=== PATIENT | female | born 1950 | race Caucasian/White ===

== ENCOUNTER 2018-11-23 08:28 | Inpatient (IN) | payer OTHER ==
[2018-11-23] VITALS (69 sets, daily range): BP systolic 43–177; BP diastolic 17–148
[~2018-11-23] VITALS: Ht 167.6 cm; Wt 192.2 kg
[~2018-11-23 08:28] MED LIST: AMOXICILLIN 50500 M1 PO; DOXYCYCLINE 10100 MG PO; FLUOXETINE HCL40 MG PO; KLOR-CON 1010 MEQ PO; LASIX 20 MG TAB20 MG PO; LASIX 40 MG TAB40 M1 PO; NORCO 10-325 T1 EACH PO; SILVADENE20 GM TP
[2018-11-23 08:59] LABS: HEMATOCRIT 46.8 % (37.0-47.0); HEMOGLOBIN 15.8 gm/dL (12.0-15.0); MCH 30.9 pg (26.0-34.0); MCHC 33.8 g/dL (28.0-37.0); MCV 91.5 fL (80.0-100.0); PLATELET COUNT 290 thou/uL (150-400); RBC 5.12 mil/uL (4.20-5.00); RDW 15.4 % (10.5-14.5); WBC 27.8 thou/uL (4.0-11.0)
[2018-11-23] MEDS ORDERED: SYNTHROID100 MC1 PO (09:09)
[2018-11-23] MEDS ORDERED: ULTRAM 50MG TAB50 MG PO (09:10)
[2018-11-23] MEDS ORDERED: CLEOCIN HCL150 MG PO (09:10)
[2018-11-23 09:15] LABS: APTT 32.6 Seconds (24.5-32.8); INR 1.5; PROTIME 15.9 Seconds (9.3-11.4)
[2018-11-23 09:19] LABS: ALBUMIN 2.1 g/dL (3.4-5.0); CREATININE 3.6 mg/dL (0.6-1.0); MAGNESIUM 2.9 mg/dL (1.8-2.4); TOTAL BILIRUBIN 1.3 mg/dL (<0.1-1.0); TOTAL PROTEIN 7.3 g/dL (6.4-8.2); TROPONIN-I 0.26 ng/mL (<0.06)
[2018-11-23 09:31] LABS: ABSOLUTE NEUTROPHILS 24.7 thou/uL (1.4-8.2)
[2018-11-23 09:32] LABS: ANISOCYTOSIS 1+
[2018-11-23 09:51] LABS: BE(vivo) -17.6 mmol/L (-2 to +3); HCO3 10.1 mmol/L (22.0-26.0); PCO2 30.1 mmHg (35.0-45.0); sO2 99.8 % (92.0-98.0)
[2018-11-23 09:52] LABS: pH 7.142 (7.360-7.450)
[2018-11-23 10:37] LABS: TROPONIN-I 0.25 ng/mL (<0.06)
[2018-11-23 10:50] LABS: URINE BILIRUBIN NEGATIVE (Negative); URINE BLOOD 3+ (Negative); URINE CLARITY CLOUDY; URINE COLOR YELLOW; URINE GLUCOSE-RANDOM* NEGATIVE (Negative); URINE KETONES NEGATIVE (Negative); URINE PROTEIN (DIPSTICK) 2+ (Negative); URINE SPECIFIC GRAVITY 1.025 (1.005-1.035); URINE UROBILINOGEN 0.2 E.U./dl (0.2-1.0)
[2018-11-23 10:57] LABS: URINE LEUKOCYTES-REFLEX 2+ (Negative); URINE NITRITE-REFLEX POSITIVE (Negative)
[2018-11-23 11:00] LABS: AMP/METHAMP Negative (Negative); BARBITURATES Negative (Negative); BENZODIAZEPINES Negative (Negative); COCAINE Negative (Negative); METHADONE Negative (Negative); OPIATES POSITIVE (Negative); PCP Negative (Negative)
[2018-11-23 11:01] LABS: BACTERIA-REFLEX >30 Many /HPF (None Seen); CASTS None Seen /LPF (None Seen); CRYSTALS None Seen /LPF (None Seen); SQUAMOUS 0-3 Few /LPF (0-3); URINE RBC 3-10 Few /HPF (0-2); URINE WBC-REFLEX >25 Many /HPF (0-5)
--- NOTE | 2018-11-23 12:10 | NUR ---
ADMISSION NOTE: PT ARRIVED @ 1210 11/23/18, PT ASSESSMENTS AND VSS COMPLETE PER ICU PROTOCOL. PT ARRIVED FROM THE ER WITH THE ASSIST OF NURSING STAFF AND RT. PT ARRIVED ON PROPOFOL, LEVOPHED AND DOPAMINE GTT RUNNING. PT ARRIVED EXTERNALLY PACED 8OMA 80PPM. PT ON THE VENT, SATS IN THE HIGH 90'S. PLAN OF CARE- CONT TO MONITOR.
[2018-11-23 14:35] LABS: BE(vivo) -9.3 mmol/L (-2 to +3); PCO2 29.6 mmHg (35.0-45.0); PCO2 VENOUS 29.6 mmHg (41.0-51.0); PO2 VENOUS 54.3 mmHg (35.0-45.0); sO2 86.4 % (92.0-98.0)
[2018-11-23 14:36] LABS: PO2 54.3 mmHg (80.0-100.0); pH 7.324 (7.360-7.450)
[2018-11-23 14:38] LABS: BE(vivo) -7.9 mmol/L (-2 to +3); HCO3 14.6 mmol/L (22.0-26.0); PCO2 24.6 mmHg (35.0-45.0); PO2 580.6 mmHg (80.0-100.0); pH 7.392 (7.360-7.450); sO2 99.9 % (92.0-98.0)
--- NOTE | 2018-11-23 17:45 | NUR ---
PER MED NECESSITY A 5FRTL CL PLACED LT IJ PER HOSPITAL P&P. TIP REVEALED AT [facility] VIA CXR. PLEASE SEE INSERTION NOTE FOR DETAILS
--- NOTE | 2018-11-23 19:57 | NUR ---
ASSUMED CARE @ 1210 11/23/18, PT ON PROPOFOL @ 5, PT NOT FOLLOWING COMMANDS BUT ABLE TO WITHDRAW FROM PAIN. PT STILL ON LEVOPHED, DOPAMINE, AND NOW ON VASOPRESSIN FOR MORE BP SUPPORT. PT DID CONVERT INTO AFIB RVR HR IN THE 140'S, PACEMAKER SWITCHED OFF. DR DEENA PALOMO, AMIO GTT ORDERED AT 0.5 AND DOPAMINE IS ACTIVELY BEING TITRATED DOWN. ART LINE PLACED IN THE RIGHT RAD. PT ON THE VENT, SEE PROCESS INTERVENTION FOR SPECIFICS. SON HERE DURING THE SHIFT TO VISIT WITH. PICTURES OF WOUNDS TAKEN AND DOCUMENTED ON . PLAN OF CARE- CONT TO MONITOR.
[2018-11-24 05:25] LABS: HCO3 17.5 mmol/L (22.0-26.0); PCO2 36.3 mmHg (35.0-45.0); PO2 142.1 mmHg (80.0-100.0); sO2 98.6 % (92.0-98.0)
[2018-11-24 05:33] LABS: HEMATOCRIT 28.6 % (37.0-47.0); MCH 30.9 pg (26.0-34.0); MCHC 33.4 g/dL (28.0-37.0); MCV 92.4 fL (80.0-100.0); RBC 3.1 mil/uL (4.20-5.00); RDW 14.7 % (10.5-14.5); WBC 17.8 thou/uL (4.0-11.0)
[2018-11-24 05:37] LABS: HEMOGLOBIN 9.6 gm/dL (12.0-15.0)
--- NOTE | 2018-11-24 06:47 | HC ---
[facility] [place] [address] CONSULTATION Name: CARRINGTON LONDONO Room #: 243-P ADM IN M.R.#: [id number] Admission: 11/23/18 Attend Phys: Marilyn Gavin Discharge: Date of : 46 Report #: [id number] THIS REPORT FOR: //name// CC: QIAN physician/PCP Marilyn Gavin DATE OF SERVICE: 11/23/2018 REASON FOR CONSULTATION: Critical hyperkalemia and renal failure. HISTORY OF PRESENT ILLNESS: This is a 68-year-old female who was brought in by EMS this morning. She was found to be in a wide complex what was probably a junctional bradycardia. She was started on external pacing in the field. Unfortunately, I do not have that rhythm strip to confirm. She was brought in with the external pacing. She was hypotensive on presentation. She was intubated shortly after that in the Emergency Room and labs were drawn. We are asked to see her at this time because of a potassium level of 9. All of her labs will be listed below. She has already been given albuterol, insulin, dextrose, calcium, and bicarbonate. Repeat labs have not been drawn, but those medications were just administered. She has been given 2 liters of normal saline. She has been started on pressors. PAST MEDICAL HISTORY: The patient has severe morbid obesity. She has also had longstanding lymphedema. She has been bedbound for many years. She has had previous admissions to this hospital with cellulitis related to her lymphedema. She continues to be bedbound. She has had prior history of normal kidney function on those hospitalizations. In fact, prior creatinine levels have run in the 0.6-0.7 range and that was in March 2016. I have no labs since that time. She has had previous hip surgery and disk surgery. I do not have confirmation, but is most certainly she has obstructive sleep apnea, right-sided heart failure associated with that, although she has been in the hospital for 3 years. MEDICATIONS: On admission appear to be fluoxetine, levothyroxine 0.1 mg daily, tramadol, clindamycin and some hydrocodone. ALLERGIES: LISTED TO CODEINE. FAMILY HISTORY: Noncontributory. SOCIAL HISTORY: The patient lives in [place], [place]. She is listed as being , although her son apparently takes care of her at home. She is totally bedbound. REVIEW OF SYSTEMS: Unavailable. [facility] [address] [place] [address] CONSULTATION Name: CARRINGTON LONDONO Room #: 243-P [facility] IN .R.#: [id number] Admission: 11/23/18 Attend Phys: Marilyn Gavin Discharge: Date of : 46 Report #: [id number] PHYSICAL EXAMINATION: GENERAL: Morbidly obese female, currently unresponsive. She is orally intubated. She is on an external pacer. VITAL SIGNS: Current blood pressure 85/63. She is paced at a rate of 80, oxygen saturation 97%. HEENT: Shows pupils are 4 mm and sluggish. Sclerae nonicteric. NECK: Large. I cannot tell if there is JVD or not. CHEST: Shows coarse breath sounds bilaterally. HEART: In a paced rhythm. ABDOMEN: Morbidly obese. She even has lymphedema and pebbling of the skin on the lateral aspect of her abdomen and possible ____ of her abdomen is distended more than normal. EXTREMITIES: Show massively lymphedematous legs with numerous areas of skin breakdown, brawny pebbling to the most extreme extent. The skin on her right thigh and leg are dramatically mottled and purple, not so much on the left. NEUROLOGIC: She is unresponsive at this time. LABORATORY DATA: Sodium 120, potassium 9.0, chloride 94, bicarbonate 13, BUN 73, creatinine 3.6, glucose 104. AST 32, ALT 9, total bilirubin 1.3, calcium 8.0, magnesium 2.9, alkaline phosphatase 137, total protein 7.3, albumin 2.1. Lactate 3.1. Troponin 0.26. INR is 1.5. White count 27.8 with differential of 89 segs, 5 lymphs, 6 monos. Hemoglobin 15.8, hematocrit 46.8, platelets 290,000. Blood gas pH 7.14, pCO2 30, pO2 of 475 after being intubated. ASSESSMENT: 1. Critical hyperkalemia. Again, I do not have a rhythm strip, but she was most likely in a sine wave or a very poor junctional rhythm. She is now paced. She has been given albuterol, insulin, dextrose, bicarbonate, and calcium. With her current appearance, this may be temporized things, but will need to get her on dialysis acutely to try to get her potassium corrected. 2. Renal failure, appearing to be acute. She has never had problems with renal failure before. How much of this is due to her current sepsis and hypotension or how much of this is worsening of her baseline renal function on a chronic basis will have to be determined down the line. 3. Septic shock, likely on the basis of numerous skin wound/infection. 4. Respiratory failure, now orally intubated. 5. I am very concerned that she has got an ischemic right leg. The right leg is unilaterally very mottled and purple. We need to check CPK as she may have suffered some massive muscle necrosis to drop this potassium this high this acutely. 6. Morbid obesity with the most dramatic lymphedema, imaginable. The amount of hypertrophic skin changes, numerous areas of breakdown, is nearly beyond description. PLAN: 1. She has gotten emergent care in the Emergency Department. She will now go [facility] [address] [facility] [place] [address] CONSULTATION Name: CARRINGTON LONDONO Room #: 243-P ADM IN .R.#: [id number] Admission: 11/23/18 Attend Phys: Marilyn Gavin Discharge: Date of : 46 Report #: [id number] for a dialysis catheter and we will attempt to dialyze to get her potassium down. This will be a very difficult dialysis owing to hypotension and her extreme instability. If we can get her potassium down somewhat, hopefully, we can get her heart rhythm stabilized and then we can go from there. 2. Check a CPK as it has not been done yet as it may be driving some of her potassium. 3. Continue mechanical ventilation. 4. Continue pressors for hemodynamic benefit. 5. Cultures and antibiotics. 6. This patient will require an amazing amount of critical care to get her stabilized. Universally. there is a poor prognosis for this patient, but we will see what we can do in the interim. <ELECTRONICALLY SIGNED> By: Xavier Little MD 11/24/18 0647 [id number] 31 Xavier Little MD /keturah
[2018-11-24 06:54] LABS: ALBUMIN 1.8 g/dL (3.4-5.0); CALCIUM 8.1 mg/dL (8.5-10.1); TOTAL BILIRUBIN 1.7 mg/dL (<0.1-1.0); TOTAL PROTEIN 6.5 g/dL (6.4-8.2)
[2018-11-24 06:55] LABS: CREATININE 2.3 mg/dL (0.6-1.0); POTASSIUM 5.3 mmol/L (3.5-5.1)
--- NOTE | 2018-11-24 08:12 | 2DMMODE ---
[facility] [place] [address] 2 D/M-MODE ECHOCARDIOGRAM Name: CARRINGTON LONDONO Room #: 243-P ADM IN M.R.#: [id number] Admission: 11/23/18 Attend Phys: Marilyn Chand Discharge: Date of : 46 Date of Service: 11/24/18811 Report #: [id number] THIS REPORT FOR: //name// APPROVED REPORT Study performed: 11/24/2018 07:06:14 EXAM: Comprehensive 2D, Doppler, and color-flow Echocardiogram Patient Location: ICU Room #: 243 Status: routine BSA: 2.73 HR: 77 bpm BP: 115/64 mmHg Rhythm: NSR Other Information Study Quality: Adequate Technically limited study due to super morbid obesity. Indications Hyperkamlemia, bradycardia. 2D Dimensions RVDd: 38.24 mm IVSd: 13.31 (7-11mm) LVOT Diam: 18.64 (18-24mm) LVDd: 37.03 mm PWd: 12.00 (7-11mm) LVDs: 24.97 (25-40mm) Aortic Root: 26.69 mm Volumes Left Atrial Volume (Systole) Single Plane 4CH: 44.63 mL Single Plane 2CH: 65.76 mL LA ESV Index: 22.00 mL/m2 Aortic Valve AoV Peak Javi.: 2.91 m/s AO Peak Gr.: 33.86 mmHg LVOT Max P.38 mmHg AO Mean Gr.: 20.39 mmHg AO V2 Mean: 2.14 m/s LVOT Max V: 1.76 m/s AO V2 VTI: 47.50 cm ANDREE Vmax: 1.65 cm2 [facility] [place] [address] 2 D/M-MODE ECHOCARDIOGRAM Name: CARRINGTON LONDONO Room #: [facility] IN .R.#: [id number] Admission: 11/23/18 Attend Phys: Marilyn Chand Discharge: Date of : 46 Date of Service: 11/24/18 0812 Report #: [id number] Mitral Valve E/A Ratio: 0.8 MV Decel. Time: 282.51 ms MV E Max Javi.: 0.75 m/s MV A Javi.: 0.95 m/s MV PHT: 81.93 ms IVRT: 78.43 ms Pulmonary Valve PV Peak Javi.: 1.97 m/s PV Peak Gr.: 15.47 mmHg Tricuspid Valve TR Peak Javi.: 3.07 m/s RAP Estimate: 5.00 mmHg TR Peak Gr.: 37.74 mmHg PA Pressure: 43.00 mmHg Left Ventricle The left ventricle is normal size. There is normal LV segmental wall motion. Mild concentric left ventricular hypertrophy. Left ventricular systolic function is normal. LVEF is 65%. Mild diastolic dysfunction Right Ventricle The right ventricle is normal size. The right ventricular systolic function is normal. Atria The left atrium size is normal. The right atrium size is normal. Aortic Valve Aortic valve is calcified, mildly stenotic. No aortic regurgitation is present. Calculated aortic valve area is 1.6 cm2 with maximum pressure gradient of 34 mmHg and mean pressure gradient of 20 mmHg. Mitral Valve Mild mitral annular calcification. There is no mitral valve regurgitation noted. No evidence of mitral valve stenosis. Tricuspid Valve The tricuspid valve is normal in structure. Mild tricuspid regurgitation. Estimated PAP is 45mmHg. Pulmonic Valve The pulmonary valve is normal in structure. There is no pulmonic [facility] [address] [place] [address] 2 D/M-MODE ECHOCARDIOGRAM Name: CARRINGTON LONDONO Room #: [address] [place] [address] IN .R.#: [id number] Admission: 11/23/18 Attend Phys: Marilyn Chand Discharge: Date of : 46 Date of Service: 11/24/18 0812 Report #: [id number] valvular regurgitation. Great Vessels The aortic root is normal in size. Ascending aorta is not well visualized. IVC is normal in size and collapses >50% with inspiration. Pericardium There is no pericardial effusion. <Conclusion> Left ventricular systolic function is normal. There is normal LV segmental wall motion. LVEF is 65%. Mild diastolic dysfunction Aortic valve is calcified, mildly stenotic. No insufficiency Calculated aortic valve area is 1.6 cm2 with maximum pressure gradient of 34 mmHg and mean pressure gradient of 20 mmHg. Mild mitral annular calcification. No mitral valve regurgitation. Mild tricuspid regurgitation. Estimated pulmonary artery pressure of 45mmHg. There is no pericardial effusion. <ELECTRONICALLY SIGNED> By: Neeraj Evans MD, [facility] 11/24/18811 1 1 Neeraj Evans MD, FACC /INF
[2018-11-24 10:49] LABS: POC ANION GAP Outside Report Range mmol/L (7-16); POC BUN 67 mg/dL (7-18); POC CA IONIZED 3.6 mg/dL (4.5-5.3); POC CHLORIDE 107 mmol/L (98-107); POC CREATININE 3.5 mg/dL (0.6-1.3); POC GLUCOSE 108 mg/dL (70-99); POC POTASSIUM > 7.5 mmol/L (3.5-5.1); POC SODIUM 127 mmol/L (136-145); POC TCO2 15 mmol/L (21-32)
--- NOTE | 2018-11-24 11:33 | NUR ---
WOUND CARE CONSULT; CONSULTED DR ROBE SEWELL. NO NEED TO FOLLOW I WILL SIGN OFF. RECONSULT IF NEEDED. DISCUSSED WITH RN
--- NOTE | 2018-11-24 16:28 | EKG ---
[address] [place] [address] ELECTROCARDIOGRAM REPORT Name: CARRINGTON LONDONO Room #: 243- ADM IN M.R.#: [id number] Admission: 11/23/18 Attend Phys: Marilyn Gavin Discharge: Date of : 46 Report #: [id number] THIS REPORT FOR: //name// [facility] Test Date: 2018-11-24 Test Time: 09:15:14 Pat Name: CARRINGTON LONDONO Department: Room: 243 P Gender: F Spring Clipper: HARSH : 1950 Requested By: Jem Ruiz Order Number: [id number] MD: Neeraj Evans Measurements Intervals [place] Rate: 72 P: -6 WV: 171 QRS: -23 QRSD: 105 T: -63 QT: 427 QTc: 468 Interpretive Statements Sinus rhythm ST and T wave abnormality, consider inferior and lateral ischemia Compared to ECG 03/06/2016 12:35:[address] and T wave abnormality is more prominent Electronically Signed On 11-24-2018 16:28:32 CDT by Neeraj Evans [email or web address] <ELECTRONICALLY SIGNED> By: Neeraj Evans MD, [facility] 11/24/18 1628 0915 0915 Neeraj Evans MD, [facility] /EPI
--- NOTE | 2018-11-24 16:37 | NUR ---
PT ADMITTED RELATED TO HYPERKALEMIA; HYPOTENSION; BRADYCARDIA. CM REVIEWED CHART AND SPOKE WITH CARE TEAM. PT IS ON VENT AND NO ABLE TO COMPLETE ASSMENT AT THIS TIME. CM CALLED PT'S SON/DPOA. HE INDICATED THAT PT HAD BEEN LIVING IN HER OWN HOME AND THAT HE HAD BEEN GOING BACK AND FORTH TO HER HOME AND HIS OWN RING CUTTER LATHE OPERATOR. HE INDICATED THAT THERE IS A RAMP TO ENTER THE HOME. HE INDICATED THAT PT HAD BEEN BED BOUND RING CUTTER LATHE OPERATOR. HE INDICATED THAT HE IS HER PAID CAREGIVER THROUGH [employer]. HE INDICATED THAT PT HAS A VISITING PHYSICAIN WHO SEES HERE IN THE HOME NAMED DR. MAGGIE OCHOA. HE INDICATED THAT [facility] HAD [facility] IN THE [facility]ST. HE INIDCATED THAT HE ANTICIPATES PT RETURNING HOME ONE MEDICALLY STABLE. CM ASKED IT HE WOULD BE RECEPTIVE TO POST ACUTE CARE STAY IF INDICATED UPON DC AND HE INDICATED HE WOULD PREFER PT RETURN HOME. CM TO FOLLOW INDICATED WITH DC PLANNING.
--- NOTE | 2018-11-24 20:14 | NUR ---
PT AWAKE. ABLE TO FOLLOW SIMPLE COMMANDS AND NOD HEAD TO YES/NO QUESTIONS. 4HR DIALYSIS TREATMENT ORDERED. DIALYSIS LINE VERY POSITIONAL AND FREQUENTLY HAVING TO BE REPOSTIONED/RE-DRESSED BY C D STILL OPERATOR. DIALYSIS TREATMENT RAN ON/OFF FOR 6 + HRS. UNABLE TO TURN PT DURING DIALYSIS DUE TO POSTIONAL LINE. BP DROPPED DURING DIALYSIS AND PRESSORS TITRATED UP. ABLE TO TITRATE PRESSORS BACK DOWN ONCE DIALYSIS FINISHED. TITRATING TO KEEP MAP >60. POOR URINE OUTPUT TODAY. WOUND CARE CONSULT PLACED AND DR SEWELL HERE TO SEE PT. PT TO START ON DAKINS TO WOUNDS ORDERED. PT'S SON AND SISTER AT BEDSIDE AND UPDATED TODAY. SLOWLY PROGRESSING TOWARDS GOALS PER PLAN OF CARE.
[2018-11-24] MEDS ORDERED: VITAMIN D250000 UNIT PO (22:39)
[2018-11-24] MEDS ORDERED: PROZAC20 MG PO (22:47)
[2018-11-24] MEDS ORDERED: ZINC50 M1 PO (22:47)
[2018-11-24] MEDS ORDERED: MAGOX 400400 MG PO (22:47)
--- NOTE | 2018-11-25 04:44 | NUR ---
END OF SHIFT NOTE. ASSUMED CARE OF PATIENT AT APPROX 1900 ON 11/24. PATIENT ASSESSED AND VITALS TAKEN PER ICU PROTOCOL. UPON ARRIVAL PATIENT WAS INTUBATED AND DROWSY, ON PROPOFOL, FOLLOWING COMMANDS AND NODDING HEAD TO YES/NO QUESTIONS. PATIENT REMAINS ON LEVO, DOPAMINE, AND VASO TO MAINTAIN A MAP >60, DOPAMINE IS BEING TITRATED DOWN. DRESSING CHANGES WERE COMPLETE TO BLE, BACK, RIGHT HIP, AND LEFT ARM, USING DAKINS SOLUTION, THIS TASK REQUIRING 5 PERSONEL TO COMPLETE. PATIENT TRANSFERED TO A BARIATRIC.
[2018-11-25 04:58] LABS: ALBUMIN 1.6 g/dL (3.4-5.0); CREATININE 1.9 mg/dL (0.6-1.0); PHOSPHORUS 4.3 mg/dL (2.5-4.9)
[2018-11-25 05:31] LABS: HEMATOCRIT 45.9 % (37.0-47.0); MCH 30.6 pg (26.0-34.0); MCHC 33.6 g/dL (28.0-37.0); MCV 91.2 fL (80.0-100.0); RBC 5.04 mil/uL (4.20-5.00); RDW 14.9 % (10.5-14.5); WBC 24.4 thou/uL (4.0-11.0)
[2018-11-25 05:35] LABS: HEMOGLOBIN 15.4 gm/dL (12.0-15.0)
[2018-11-25 10:11] LABS: HEPATITIS B SURFACE AG Negative (Negative)
[2018-11-25 11:00] LABS: BE(vivo) -1.5 mmol/L (-2 to +3); HCO3 23.5 mmol/L (22.0-26.0); PCO2 40.6 mmHg (35.0-45.0); PO2 105.8 mmHg (80.0-100.0); sO2 97.8 % (92.0-98.0)
--- NOTE | 2018-11-25 11:16 | NUR ---
SEDATION VACATION PERFORMED WITH PT OPENING EYES, LIGHTLY SQUEEZING HANDS, SA/AFIB WITH PVC'S, OCCASIONAL COUPLET OF PVC'S, UNABLE TO DOPPLE ASHLEY PEDAL PULSES, L HAND DUSKY/CYANOTIC WITH ARM ELEVATED ON 2 PILLOWS, DIALYSIS IN PROGRESS- INCREASING VASOACTIVE GTTS TO ALLOW PT TO TOLERATE DIALYSIS. SISTER BRIEFLY PRESENT TO SEE PT.
--- NOTE | 2018-11-25 19:30 | NUR ---
shift summary: during dialysis 1,000cc removed. cortisols level drawn prior to med administration, then 30 min and 60 min after dosing. afib/pvcs, dopamine increased for bp control during dialysis. dopamine therapeutically increased hr. vasoactive gtts rate remain constant to keep adequate map>60. tolerating vent, scant alejandra urine output. daughter present. minimal progress.
[2018-11-26 04:45] LABS: ALBUMIN 1.5 g/dL (3.4-5.0); CALCIUM 7.8 mg/dL (8.5-10.1); CREATININE 1.7 mg/dL (0.6-1.0); PHOSPHORUS 3.6 mg/dL (2.5-4.9)
--- NOTE | 2018-11-26 06:25 | NUR ---
END OF SHIFT NOTE. ASSUMED CARE FOR PATIENT AT APPROX 1900 ON 11/25. UPON ARRIVAL PATIENT WAS ASSESSED AND VITALS TAKEN PER ICU PROTOCOL. PATIENT IS INTUBATED AND SEDATED ON PROPOFOL. PATIENT FOLLOWING COMMANDS. PATIENT REMAINS ON LEVO, DOPAMINE, AND VASO, TITRATING TO MAINTAIN MAP > 65. WOUND DRESSING WERE CHANGED, REQUIRING MULTIPLE PERSONNEL TO ASSIST, CHG WIPE BATH WAS COMPLETED.
--- NOTE | 2018-11-26 10:51 | HC ---
[facility] [place] [place] [address] CONSULTATION Name: CARRINGTON LONDONO Room #: 243-P ADM IN M.R.#: [id number] Admission: 11/23/18 Attend Phys: Marilyn Gavin Discharge: Date of : 46 Report #: [id number] THIS REPORT FOR: //name// CC: QIAN physician/PCP Marilyn Gavin DATE OF SERVICE: 11/24/2018 WOUND CARE CONSULTATION PERSONAL PHYSICIAN: Gómez Harris M.D. CHIEF COMPLAINT: Lymphedema and gluteal ulcer. HISTORY OF PRESENT ILLNESS: This is a 68-year-old white female who is currently in the ICU secondary to acute renal failure and hyperkalemia. The patient herself is intubated and sedated, unable to give any history. The nurses in the ICU state that the patient had been taking an tdxy-sqs-rhlzscr potassium supplement and when EMS was called to the scene, she was found to be in a wide complex rhythm and was started on external pacing in the field. The patient upon arrival to the Emergency Department was found to have a potassium level of 9. The patient was treated with appropriate medicines to reverse the hyperkalemia and we have been asked to see the patient for chronic lower extremity lymphedema with associated multiple open ulcerations as well as an ulceration on her left gluteal region, all of which were present upon arrival to the hospital. There is no family here at this time to give me any further history. Rest of the history was obtained just from reviewing the patient's old medical records. PAST MEDICAL HISTORY: Significant for severe morbid obesity, once again longstanding bilateral lower extremity lymphedema. The patient is bedbound, chronic ulcerations of bilateral lower extremities associated with her lymphedema. CURRENT MEDICATIONS: Include fluoxetine, Synthroid, tramadol and clindamycin. DRUG ALLERGIES: CODEINE. SOCIAL HISTORY: The patient supposedly lives at home and is bedbound and is cared for by her family. It is unclear whether the patient has any history of smoking or alcohol use. FAMILY HISTORY: Unobtainable because the patient is intubated and sedated. REVIEW OF SYSTEMS: Unobtainable because the patient is intubated and sedated. [facility] [address] [place] [address] CONSULTATION Name: CARRINGTON LONDONO Room #: [facility] IN [facility].#: [id number] Admission: 11/23/18 Attend Phys: Marilyn Gavin Discharge: Date of : 46 Report #: [id number] PHYSICAL EXAMINATION: VITAL SIGNS: Temperature 35.2, pulse 59, respiratory rate is 12 on the ventilator. GENERAL: This is an intubated and sedated, morbidly obese white female who is in no obvious distress at this time. HEENT: Normocephalic, atraumatic. Mucous membranes are dry. Endotracheal tube is in place. NECK: Supple, without JVD. LUNGS: Slight diminished breath sounds heard throughout, but no rhonchi. HEART: Bradycardic. ABDOMEN: Morbidly obese, soft, nontender. EXTREMITIES: The patient has 4+ lymphedema of bilateral lower extremities extending all the way down into toes. There are multiple superficial ulcerations on bilateral lower extremities, which are fairly clean and granulating with serous drainage noted without significant odor. There are no apparent deeper ulcerations on the left gluteal region per picture from the Emergency Department shows an ulceration, which is consistent with a stage 3 decubitus ulcer, which is a mixture of approximately 50% granulation tissue, 50% slough. Periwound appears to be somewhat macerated. I am unable to visualize it personally because the patient is intubated on the ventilator and it is too medically unstable to turn over at this time. NEUROLOGIC: Once again, the patient is intubated and sedated. LABORATORY VALUES: White count 17.8, hemoglobin 9.6, BUN 23, creatinine 1.9. Albumin is 1.6. Lower extremity venous Doppler shows no signs of DVT. IMPRESSION: 1. Chronic lymphedema with multiple superficial ulcerations limited to breakdown of subcutaneous tissue. No signs of obvious cellulitis. 2. Hyperkalemia. 3. Respiratory failure. 4. Left gluteal decubitus ulcer stage 3 -- chronic. 5. Morbid obesity. 6. Generalized debility. 7. Severe protein-calorie malnutrition with albumin of 1.6. PLAN: At this time, we will start Dakin's quarter strength moist dressings to all open wounds in the lower extremities and to the gluteal region twice daily. Due to the massive edema of the patient's lower legs and the size of her legs, we will hold off on any type of wrapping while the patient is medically unstable. We will attempt to try to maximize the patient's protein supplementation once the patient is able to take food and drink fluids by mouth and put the patient on a low air loss mattress and have her turned every 2 hours, order heel protection bilaterally. We will continue to follow the patient while she is here. [address] [address] CONSULTATION Name: CARRINGTON LONDONO Room #: 243-P ADM IN M.R.#: [id number] Admission: 11/23/18 Attend Phys: Marilyn Gavin Discharge: Date of : 46 Report #: [id number] I appreciate the ability to consult. <ELECTRONICALLY SIGNED> By: Oliver Sharp MD 11/26/18 1051 1015 1438 Oliver Sharp MD /nt
--- NOTE | 2018-11-26 12:36 | NUR ---
Spoke with pt's son Jean via phone. He will be in around 1:30pm today and is aware the attending would like to meet with him to discuss the pt's prognosis and plan of care. Structures Mechanic requested he bring in his dpoa for hc document and any AD or Living Will documents the pt may have completed. Structures Mechanic also spoke with [facility]. They have not see the pt since 2018;however they do manage her caregiver services through their Consumer Directed Service program paid for by her [place] Medicaid. The pt's son is her paid caregiver. Nelly is the mainframe systems programmer and can be reached at [phone]. She reports that they do home visits ever six months but do not provide any nursing visits or other supervision in the home. She was not aware that the pt was in the hospital. Nursing and the attending updated. Nursing to page the attending when her son arrives. The pt is bed bound and her son reports he is there with her most of the time. He has his aunt Gabrielle Alonzo come over to sit with her when he needs to run errands. Will follow.
--- NOTE | 2018-11-26 12:42 | NUR ---
WOUND CONSULT; ROUNDING WITH WENDY DIE TROUBLE SHOOTER AND JULIEN SUPERVISOR BENZENE REFINING. WOUNDS TO THE LOWER EXTREMITIES BILATERALLY, YELLOW, FIBRINOUS WOUND BEDS. INFECTIONS ARE LIKELY CURRENTLY USING DAKINS TO ALL.COVERED WITH ABD PADS. THE RIGHT HIP/BUTTOCK HAS A UNSTABLE HEMATOMA. RECOMMENDATIONS; CONTINUE THE SAME. RN PRESENT
--- NOTE | 2018-11-26 14:51 | NUR ---
Pt remains in ICU on the vent. She is a&ox4 and able to converse in writing. Pt requested help faxing a letter to her [employer] company. Letter faxed and confirmation sheet provided to the pt. She indicates that she is likely having surgery, trach placement unless she is able to wean off the vent. She reports that she has been texting her JOHAN Lyubov in [place]. She would like Ly[employer] to be her medical dpoa. Document provided and reviewed with the pt at bedside. Notary services provided by cm and copy of the document was placed on the chart. Pt to udpate Lyub[employer]. She reports that she is communicating with her son and friends via text. She has not told her son about the surgery. She reports that friends are helping support him while she is here. Pt aware that cm will follow and assist with dc planning and support as needed.
[2018-11-26 17:06] LABS: CORTISOL 60 MIN 19.2 ug/dL (Not Estab.); CORTISOL BASELINE 14.8 ug/dL (())
--- NOTE | 2018-11-26 19:55 | NUR ---
PATIENT REMAINS INTUBATED AND STABLE ON VENT O2 SAT IS GREATER THAN 97%. BLOOD PRESSURE REMAINS LIABLE AND NOTED TO DIP INTO THE 70'S WHEN CLEARING PUMPS. REMAINS ON PRESSORS, ESSENTIAL UNCHANGED FROM THIS AM, ALTHOUGH ATTEMPTED TO EUGENIE DID NOT TOLERATE. SEDATION VACATION AT 1600 TODAY, PATIENT NOTED TO BE LOOKING AROUND, ABLE TO FOLLOW SIMPLE COMMANDS AND REASSURANCE AND EDUCATION PROVIDED. REMAINS ON PROPOFOL AT 10MCG. FAMILY UPDATED TO POC AND STATUS, EDUCATED ON MEDICATIONS AND POC AND GOALS. REASSURANCE GIVEN.
--- NOTE | 2018-11-27 04:59 | NUR ---
PT REMAINS ON THE VENT 30% FIO2 SATS 98% AM LABS TO BE DRAWN AND REVIEWED. PT SR ON MONITOR WITH OCCASIONAL SA AND PVCs. PT WITH SALVATORE IN TACT TO RIGHT RADIAL. PT REMAINS ON VASO, DOPAMINE, LEVO AND AMIO GTT WITH PROPOFOL FOR VENT COMFORT. PT CHENEY IN TACT WITH LOW UO. EXTREMITIES REMAINS EDEMATOUS AND WEEPING WITH WOUND CARE ON BOARD. NUTRITION NEEDS TO BE ADDRESSED TODAY.
[2018-11-27 06:28] LABS: HEMATOCRIT 44.3 % (37.0-47.0); HEMOGLOBIN 14.9 gm/dL (12.0-15.0); MCH 30.6 pg (26.0-34.0); MCHC 33.5 g/dL (28.0-37.0); MCV 91.2 fL (80.0-100.0); RBC 4.86 mil/uL (4.20-5.00); RDW 14.6 % (10.5-14.5); WBC 18.5 thou/uL (4.0-11.0)
[2018-11-27 06:40] LABS: ALBUMIN 1.4 g/dL (3.4-5.0); CREATININE 1.9 mg/dL (0.6-1.0); PHOSPHORUS 4.2 mg/dL (2.5-4.9)
[2018-11-27 06:45] LABS: POTASSIUM 3.9 mmol/L (3.5-5.1)
--- NOTE | 2018-11-27 07:12 | NUR ---
ASSUMMED CARE, HEMODIALYIS STARTED. LEVO AT 17 MCG. VASO MAXED AT 0.4 MCG AND DOPA AT 5MCG/KG/MIN. MONITOR NSR WITH FREQ PVC'S AND AMIODARONE AT O.5 MG/MIN.
[2018-11-27 09:41] VITALS: BP 149/60
--- NOTE | 2018-11-27 11:00 | NUR ---
PATIENT REMAINS ON VENT, DRIPS EUGENIE DOWN. FAMILY AND PATIENT EXPRESS DESIRE TO PROCEED WITH COMFORT MEASURES. DISCUSSION HELD BETWEEN DR MORALES AND FAMILY AND DR POSADAS DISCUSSED POC WITH FAMILY AND AWARE OF HOW THE FAMILY WANTS TO PROCEED. FAMILY IS AWAITING ARRIVAL OF OTHER FAMILY MEMBERS.
--- NOTE | 2018-11-27 12:32 | NUR ---
SW reviewed chart and spoke with nursing. Pt's family have chosen to withdraw care today. Awaiting for family members to arrive. SW is available to assist if needed.
--- NOTE | 2018-11-27 16:53 | NUR ---
PATIENT EXTUBATED AT 1650
--- NOTE | 2018-11-27 19:00 | NUR ---
PATIENT ON COMFORT CARE WITH FAMILY AT BEDSIDE, MORPHINE GIVEN FOR AIR HUNGER NEEDED. REASSURANCE GIVEN TO THE FAMILY AND PATIENT.
--- NOTE | 2018-11-28 02:38 | NUR ---
Pt remains minimally reactive to cares, her eyes are open, she does not follow commands and pupils are 4mm and sluggish. Heart tones are distant, regular rate and rhythm, Art line is still in place, readings are quite low, with MAP in the 20's. Respirations are very shallow, with only an acassional deep breath noted, sats are adequate on room air. Family are at the bedside, and agree that she looks comfortable, no air hunger or restlessness noted. Will continue to monitor.
--- NOTE | 2018-11-28 12:21 | NUR ---
SW reviewed chart and spoke with attending physician. Pt remains on comfort care at this time. Family at bedside. SW is available to assist as needed.
--- NOTE | 2018-11-28 15:27 | NUR ---
ASSUMED CARE THIS AM. NON-RESPONSIVE SUPINE IN BED. EYES OPEN. NO BLINKING NOTED. OINTMENT APPLIED. SB ON MONITOR. LRADIAL SALVATORE WITH GOOD WAVEFORM, TRANSDUCER LEVEL WITH PHLEBOSATIC AXIS. +R EDEMA WITH WEEPING X 4 EXTREMITIES. COMFORT CARE INITIATED.
--- NOTE | 2018-11-28 15:30 | NUR ---
1500: SON AT BEDSIDE, QUESTIONS FOR DR. MORALES. DOCTOR PAGED AND SON SPOKE WITH HIM ON THE PHONE. 1515: CHENEY FLUSHED WITH 30CC STERILE WATER AND SAME AMOUNT RETURNED THROUHG CATHETER. 15:20: DR. MORALES IN UNIT AND MEETING WITH SON.
--- NOTE | 2018-11-29 04:48 | NUR ---
Pt had shown signs of actively dying through the shift, her arterial BP and heart rate kept decreasing, she was non-responsive, pupils were non-reactive. When her breathing became more agonal, family was advised that she likely would not last until morning. At 0227, with family at the bedside, pt went into asystole and was pronounced by two RN's, there were no respirations, no audible heart tones were heard. Family was allowed time at the bedside, and any belongings were taken home by son Jean. [facility] was notified, and it has been determined that pt is not a candidate for donation, and that she can be released to a home. Appropriate post mortem cares were provided to patient, all paperwork was completed and checked by the charge nurse.
== END 2018-11-29 02:27 | DRG 870 ==
LOC: ER 08:28 → EROBS 10:05 → ICU 10:05
PROVIDERS: Emergency Medicine; Hospitalist; Internal Medicine Nephrology; Internal Medicine Pulmonary Disease; Nurse Practitioner Acute Care; Pediatrics; ADMIT Hospitalist
PROC: 5A1955Z Respiratory Ventilation, Greater than 96 Consecutive Hours (ICD-10-PCS; principal; 2018-11-23)
PROC: B548ZZA Ultrasonography of Superior Vena Cava, Guidance (ICD-10-PCS; principal; 2018-11-23)
PROC: 02HV33Z Insertion of Infusion Device into Superior Vena Cava, Percutaneous Approach (ICD-10-PCS; principal; 2018-11-23)
PROC: 03HY32Z Insertion of Monitoring Device into Upper Artery, Percutaneous Approach (ICD-10-PCS; principal; 2018-11-23)
PROC: 0BH17EZ Insertion of Endotracheal Airway into Trachea, Via Natural or Artificial Opening (ICD-10-PCS; principal; 2018-11-23)
DX: A41.9 Sepsis, unspecified organism (principal); L89.323 Pressure ulcer of left buttock, stage 3; R65.21 Severe sepsis with septic shock; E43 Unspecified severe protein-calorie malnutrition; J96.01 Acute respiratory failure with hypoxia; N17.9 Acute kidney failure, unspecified; E87.1 Hypo-osmolality and hyponatremia; I44.2 Atrioventricular block, complete; L03.116 Cellulitis of left lower limb; L03.115 Cellulitis of right lower limb; N18.4 Chronic kidney disease, stage 4 (severe); Z68.44 Body mass index [BMI] 60.0-69.9, adult; R57.0 Cardiogenic shock; Z96.649 Presence of unspecified artificial hip joint; E87.5 Hyperkalemia; I95.9 Hypotension, unspecified; E66.01 Morbid (severe) obesity due to excess calories; G89.29 Other chronic pain; I12.9 Hypertensive chronic kidney disease with stage 1 through stage 4 chronic kidney disease, or unspecified chronic kidney disease; G47.33 Obstructive sleep apnea (adult) (pediatric); I48.91 Unspecified atrial fibrillation; D64.9 Anemia, unspecified; E87.70 Fluid overload, unspecified; Z88.6 Allergy status to analgesic agent; Z87.891 Personal history of nicotine dependence; Z79.82 Long term (current) use of aspirin; Z79.899 Other long term (current) drug therapy; Z87.81 Personal history of (healed) traumatic fracture
CPT/HCPCS: 10078; 32100; 85030